=== PATIENT | male | born 1945 | race Caucasian/White ===

== ENCOUNTER 2019-06-22 02:11 | Emergency (ER) | payer MEDICARE ==
[2019-06-22] MEDS ORDERED: fentaNYL 100 MCG/2 ML SDV IVPUSH ONE (02:22)
[2019-06-22] MEDS: fentaNYL 100 MCG/2 ML SDV ONE ×2 (02:23→02:26)
[2019-06-22] MEDS ORDERED: Sodium Chloride 0.9% 10 ML Syringe FLUSH PRN ×3 (02:26→03:02)
[2019-06-22] MEDS ORDERED: Lactated Ringers 1,000 ML IV SCH (02:30)
--- NOTE | 2019-06-22 02:30 | EDM.PDOC ---
ED HPI GENERAL MEDICAL PROBLEM - General Stated Complaint: [facility] Time Seen by Provider: 06/22/19 02:25 Source of Information: Reports: Patient, EMS, RN Notes Reviewed History Limitations: Reports: No Limitations - History of Present Illness INITIAL COMMENTS - FREE TEXT/NARRATIVE: 73-year-old gentleman presents emergency department today complaint of sudden onset abdominal pain, he arrives by EMS services states the pain started early this evening awoke up from bed he did receive 4 mg Zofran in the ambulance. Does have nausea and vomiting no fevers Right Lower Abdomen Pain Score (Numeric/FACES): 10 - Related Data Allergies Allergy/AdvReac Type Severity Reaction Status Date / Time No Known Allergies Allergy Verified 06/22/19 02:20 Home Meds: Home Meds Insulin Glarg,Human.Rec.Analog [Lantus Solostar] 10 unit SQ BID 06/22/19 [ History] Insulin Regular, Human [Novolin R] 2 - 3 unit IJ TID PRN 06/22/19 [History] LORazepam [Ativan] 0.5 mg PO Q6H PRN 06/22/19 [History] Lisinopril 10 mg PO DAILY 06/22/19 [History] Omeprazole 20 mg PO DAILY 06/22/19 [History] Past Medical History Endocrine/Metabolic History: Reports: Diabetes, Type I Social & Family History - Tobacco Use Smoking Status *Q: Never Smoker ED ROS GENERAL - Review of Systems Review Of Systems: See Below Constitutional: Reports: No Symptoms Respiratory: Reports: No Symptoms Cardiovascular: Reports: No Symptoms GI/Abdominal: Reports: Abdominal Pain, Nausea, Vomiting ED EXAM, GI/ABD - Physical Exam Exam: See Below Exam Limited By: No Limitations General Appearance: Alert, Moderate Distress Respiratory/Chest: No Respiratory Distress, Lungs Clear, Normal Breath Sounds, No Accessory Muscle Use, Chest Non-Tender Cardiovascular: Regular Rate, Rhythm, No Murmur GI/Abdominal Exam: Normal Bowel Sounds, Soft, Tender Course - Vital Signs Last Recorded V/S: Last Vital Signs Temp 97.4 F 06/22/19 02:17 Pulse 72 06/22/19 02:17 Resp 22 H 06/22/19 02:17 BP 188/81 H 06/22/19 02:17 Pulse Ox 97 06/22/19 02:17 - Orders/Labs/Meds Orders: Active Orders 24 hr Category Date Time Status Bladder Scan [RC] ASDIRECTED Care 06/22/19 02:51 Active Peripheral IV Care [RC] . DIRECTED Care 06/22/19 02:26 Active Peripheral IV Care [RC] . DIRECTED Care 06/22/19 02:35 Active Iopamidol [Isovue-300 (61%)] Med 06/22/19 03:02 Active 99 ml IV . DIRECTED PRN Lactated Ringers [Ringers, Lactated] 1,000 ml Med 06/22/19 02:30 Active IV ASDIRECTED Sodium Chloride 0.9% [Normal Saline] 70 ml Med 06/22/19 03:15 Active IV ASDIRECTED Sodium Chloride 0.9% [Saline Flush] [facility] 06/22/19 02:26 Active 10 ml FLUSH ASDIRECTED PRN Sodium Chloride 0.9% [Saline Flush] [facility] 06/22/19 02:35 Active 10 ml FLUSH ASDIRECTED PRN Sodium Chloride 0.9% [Saline Flush] [facility] 06/22/19 03:02 Active 10 ml FLUSH ONETIME PRN Peripheral IV Insertion Adult [OM.PC] Urgent Oth 06/22/19 02:26 Ordered Peripheral IV Insertion Adult [OM.PC] Urgent Oth 06/22/19 02:35 Ordered Medication Orders Lactated Ringer's (Ringers, Lactated) 1,000 mls @ 500 mls/hr IV ASDIRECTED [facility] Last Admin: 06/22/19 02:35 Dose: 500 mls/hr Sodium Chloride (Normal Saline) 70 mls @ 3 mls/sec IV ASDIRECTED [facility] Last Admin: 06/22/19 03:21 Dose: 3 mls/sec Iopamidol (Isovue-300 (61%)) 99 ml IV . DIRECTED PRN PRN Reason: RADIOLOGY EXAM Stop: 06/23/19 03:03 Last Admin: 06/22/19 03:21 Dose: 99 ml Sodium Chloride (Saline Flush) 10 ml FLUSH ASDIRECTED PRN PRN Reason: Keep Vein Open Sodium Chloride (Saline Flush) 10 ml FLUSH ASDIRECTED PRN PRN Reason: Keep Vein Open Sodium Chloride (Saline Flush) 10 ml FLUSH ONETIME PRN PRN Reason: per radiology protocol Last Admin: 06/22/19 03:21 Dose: 10 ml Labs: Laboratory Tests 06/22/19 06/22/19 06/22/19 Range/Units 02:40 02:40 02:40 WBC 13.0 H (4.5-11.0) K/uL RBC 4.64 (4.30-5.90) M/uL Hgb 14.3 (12.0-15.0) g/dL Hct 42.2 (40.0-54.0) % MCV 91 (80-98) fL MCH 31 (27-31) pg MCHC 34 (32-36) % Plt Count 280 (150-400) K/uL Neut % (Auto) 84 H (36-66) % Lymph % (Auto) 9 L (24-44) % [place] % (Auto) 7 H (2-6) % Eos % (Auto) 0 L (2-4) % Baso % (Auto) 0 (0-1) % Sodium 135 L (140-148) mmol/L Potassium 3.3 L (3.6-5.2) mmol/L Chloride 98 L (100-108) mmol/L Carbon Dioxide 25 (21-32) mmol/L Anion Gap 15.3 H (5.0-14.0) mmol/L BUN 14 (7-18) mg/dL Creatinine 0.9 (0.8-1.3) mg/dL Est Cr Clr Drug Dosing 65.97 mL/min Estimated GFR (MDRD) > 60 (>60) Glucose 247 H (74-106) mg/dL Lactic Acid 3.8 H (0.4-2.0) mmol/L Calcium 8.8 (8.5-10.1) mg/dL Total Bilirubin 0.9 (0.2-1.0) mg/dL AST 94 H (15-37) U/L ALT 67 (12-78) U/L Alkaline Phosphatase 93 (46-116) U/L Troponin I < 0.017 (0.000-0.056) ng/mL Total Protein 6.8 (6.4-8.2) g/dL Albumin 3.6 (3.4-5.0) g/dL Globulin 3.2 (2.3-3.5) g/dL Albumin/Globulin Ratio 1.1 L (1.2-2.2) Lipase (73-393) U/L Urine Color (YELLOW) Urine Appearance (CLEAR) Urine pH (5.0-8.0) Ur Specific [place] (1.008-1.030) Urine Protein (NEGATIVE) mg/dL Urine Glucose (UA) (NEGATIVE) mg/dL Urine Ketones (NEGATIVE) mg/dL Urine Occult Blood (NEGATIVE) Urine Nitrite (NEGATIVE) Urine Bilirubin (NEGATIVE) Urine Urobilinogen (0.2-1.0) EU/dL Ur Leukocyte Esterase (NEGATIVE) Urine RBC (0-5) Urine WBC (0-5) Ur Epithelial Cells Amorphous Sediment Urine Bacteria Urine Mucus 06/22/19 06/22/19 Range/Units 02:47 04:07 WBC (4.5-11.0) K/uL RBC (4.30-5.90) M/uL Hgb (12.0-15.0) g/dL Hct (40.0-54.0) % MCV (80-98) fL MCH (27-31) pg MCHC (32-36) % Plt Count (150-400) K/uL Neut % (Auto) (36-66) % Lymph % (Auto) (24-44) % [place] % (Auto) (2-6) % Eos % (Auto) (2-4) % Baso % (Auto) (0-1) % Sodium (140-148) mmol/L Potassium (3.6-5.2) mmol/L Chloride (100-108) mmol/L Carbon Dioxide (21-32) mmol/L Anion Gap (5.0-14.0) mmol/L BUN (7-18) mg/dL Creatinine (0.8-1.3) mg/dL Est Cr Clr Drug Dosing mL/min Estimated GFR (MDRD) (>60) Glucose (74-106) mg/dL Lactic Acid (0.4-2.0) mmol/L Calcium (8.5-10.1) mg/dL Total Bilirubin (0.2-1.0) mg/dL AST (15-37) U/L ALT (12-78) U/L Alkaline Phosphatase (46-116) U/L Troponin I (0.000-0.056) ng/mL Total Protein (6.4-8.2) g/dL Albumin (3.4-5.0) g/dL Globulin (2.3-3.5) g/dL Albumin/Globulin Ratio (1.2-2.2) Lipase 7720 H (73-393) U/L Urine Color Yellow (YELLOW) Urine Appearance Cloudy A (CLEAR) Urine pH 8.5 H (5.0-8.0) Ur Specific [place] 1.020 (1.008-1.030) Urine Protein Negative (NEGATIVE) mg/dL Urine Glucose (UA) 100 H (NEGATIVE) mg/dL Urine Ketones Trace H (NEGATIVE) mg/dL Urine Occult Blood Moderate (NEGATIVE) Urine Nitrite Negative (NEGATIVE) Urine Bilirubin Negative (NEGATIVE) Urine Urobilinogen 0.2 (0.2-1.0) EU/dL Ur Leukocyte Esterase Small (NEGATIVE) Urine RBC 10-20 H (0-5) Urine WBC 0-5 (0-5) Ur Epithelial Cells Rare Amorphous Sediment Numerous Urine Bacteria Many Urine Mucus Not seen Meds: Medications Generic Name Dose Route Start Last Admin Trade Name Frebria PRN Reason Stop Dose Admin Lactated Ringer's 1,000 mls @ 500 mls/hr 06/22/19 02:30 06/22/19 02:35 Ringers, Lactated IV 500 mls/hr ASDIRECTED JIMBO Administration Sodium Chloride 70 mls @ 3 mls/sec 06/22/19 03:15 06/22/19 03:21 Normal Saline IV 3 mls/sec ASDIRECTED JIMBO Administration Iopamidol 99 ml 06/22/19 03:02 06/22/19 03:21 Isovue-300 (61%) IV 06/23/19 03:03 99 ml . DIRECTED PRN Administration RADIOLOGY EXAM Sodium Chloride 10 ml 06/22/19 02:26 Saline Flush FLUSH ASDIRECTED PRN Keep Vein Open Sodium Chloride 10 ml 06/22/19 02:35 Saline Flush FLUSH ASDIRECTED PRN Keep Vein Open Sodium Chloride 10 ml 06/22/19 03:02 06/22/19 03:21 Saline Flush FLUSH 10 ml ONETIME PRN Administration per radiology protocol Discontinued Medications Generic Name Dose Route Start Last Admin Trade Name Freq PRN Reason Stop Dose Admin Fentanyl Confirm 06/22/19 02:21 06/22/19 02:26 Sublimaze Administered 06/22/19 02:22 Not Given Dose 100 mcg .ROUTE .STK-MED ONE Fentanyl 100 mcg 06/22/19 02:22 06/22/19 02:25 Sublimaze IVPUSH 06/22/19 02:23 100 mcg ONETIME ONE Administration Ketorolac Tromethamine 30 mg 06/22/19 02:35 06/22/19 02:38 Toradol IVPUSH 06/22/19 02:36 30 mg ONETIME ONE Administration Lorazepam 1 mg 06/22/19 02:51 06/22/19 02:58 Ativan IVPUSH 06/22/19 02:52 1 mg ONETIME ONE Administration Departure - Departure Time of Disposition: 05:03 Disposition: Home, Self-Care 01 Condition: Poor Clinical Impression: Pancreatitis, acute Qualifiers: Pancreatitis type: other Acute pancreatitis complication: no infection or necrosis Qualified Code(s): K85.80 - Other acute pancreatitis without necrosis or infection - Discharge Information Referrals: PCP,None [Primary Care Provider] - Forms: ED Department Discharge Additional Instructions: Do not 80 anything by mouth other than clear liquids, use Percocet as needed for pain control, use Zofran as needed for nausea and vomiting symptoms, if this treatment does not work please return to the emergency department for further evaluation, Please followup with your primary care provider in 3-5 days if not better, please call return to the emergency department with worsening of symptoms. - My Orders Last 24 Hours: My Active Orders 06/22/19 02:26 Peripheral IV Care [RC] . DIRECTED Sodium Chloride 0.9% [Saline Flush] 10 ml FLUSH ASDIRECTED PRN Peripheral IV Insertion Adult [OM.PC] Urgent 06/22/19 02:30 Lactated Ringers [Ringers, Lactated] 1,000 ml IV ASDIRECTED 06/22/19 02:35 Peripheral IV Care [RC] . DIRECTED Sodium Chloride 0.9% [Saline Flush] 10 ml FLUSH ASDIRECTED PRN Peripheral IV Insertion Adult [OM.PC] Urgent 06/22/19 02:51 Bladder Scan [RC] ASDIRECTED 06/22/19 03:02 Iopamidol [Isovue-300 (61%)] 99 ml IV . DIRECTED PRN Sodium Chloride 0.9% [Saline Flush] 10 ml FLUSH ONETIME PRN 06/22/19 03:15 Sodium Chloride 0.9% [Normal Saline] 70 ml IV ASDIRECTED - Assessment/Plan Last 24 Hours: My Active Orders 06/22/19 02:26 Peripheral IV Care [RC] . DIRECTED Sodium Chloride 0.9% [Saline Flush] 10 ml FLUSH ASDIRECTED PRN Peripheral IV Insertion Adult [OM.PC] Urgent 06/22/19 02:30 Lactated Ringers [Ringers, Lactated] 1,000 ml IV ASDIRECTED 06/22/19 02:35 Peripheral IV Care [RC] . DIRECTED Sodium Chloride 0.9% [Saline Flush] 10 ml FLUSH ASDIRECTED PRN Peripheral IV Insertion Adult [OM.PC] Urgent 06/22/19 02:51 Bladder Scan [RC] ASDIRECTED 06/22/19 03:02 Iopamidol [Isovue-300 (61%)] 99 ml IV . DIRECTED PRN Sodium Chloride 0.9% [Saline Flush] 10 ml FLUSH ONETIME PRN 06/22/19 03:15 Sodium Chloride 0.9% [Normal Saline] 70 ml IV ASDIRECTED Plan: Assessment Acuity = acute Site and laterality = on chronic pancreatitis Etiology = unknown etiology Manifestations = abdominal pain, nausea and vomiting Location of injury = Home Lab values = WBC elevated 13.0 consistent leukocytosis, sodium low at 135 consistent hyponatremia potassium low at 3.5 consistent with hypokalemia, glucose elevated 247 consistent hyperglycemia, lactic acid elevated 3.8 consistent with lactic acidosis, troponin was negative lipase elevated 7720 consistent with pancreatitis urinalysis reveals 10-[address] scan describes acute on chronic pancreatitis with distended gallbladder and wall thickening Plan I did offer him hospital admission but he declined therefore will do Zofran ODT 1 tab by mouth 3 times a day when necessary total #10, Percocet 5/325 one tablet every 4-6 hours when necessary total #20 he'll follow up with his primary care in 3-5 days if not better or return to the emergency department if the outpatient treatment does not work This note was dictated using [employer] voice recognition software please call with any questions on syntax or grammar.
[2019-06-22] MEDS ORDERED: Ketorolac 30 MG/ML SDV IVPUSH ONE (02:35)
[2019-06-22] MEDS ORDERED: LORazepam 2 MG/ML SDV IVPUSH ONE (02:51)
[2019-06-22] MEDS ORDERED: Iopamidol 612 MG/ML 100 ML Bottle IV PRN (03:02)
--- NOTE | 2019-06-22 04:05 | CRLCT ---
INDICATION: Right lower quadrant pain TECHNIQUE: CT abdomen and pelvis acquired with 99 cc Isovue-300 intravenous contrast. COMPARISON: None. FINDINGS: Lower chest: Paraseptal bullae within the lung bases. Coronary atherosclerosis. Liver: Normal in contour with multiple calcifications consistent with old granulomatous disease. There are few scattered hypodense lesions within the liver the 2-3 millimeter range which are too small for characterization. Gallbladder and bile ducts: Distended gallbladder with some gallbladder wall thickening and a small amount of pericholecystic fluid. Pancreas: Multiple calcifications within the pancreas with edema and fat stranding along the pancreatic bed with a small amount of edema extending into the root of the mesentery. Fluid extends towards the bilateral pericolic gutters. Spleen: Unremarkable. Normal in size. No masses. Adrenal glands: Unremarkable. No nodules. Kidneys: Symmetric enhancement without hydronephrosis. Calcification at the medial margin of the right kidney which could represent a vascular calcification or nonobstructing stone. GI tract: The stomach is mildly distended with some wall thickening of the duodenum with inflammatory fat stranding in the right upper quadrant. Small to moderate amount of stool within the colon. Prominent colonic diverticulosis. Vasculature: Atherosclerosis without abdominal aortic aneurysm. Omentum/Peritoneum/Abdominal Wall: Small free fluid in the deep pelvis. Pelvis: Prostatic enlargement with prostatic calcification and a Faustin catheter within the bladder. Right inguinal surgical clips. Bones: Unremarkable for age. IMPRESSION: 1. Multiple pancreatic calcifications consistent with chronic pancreatitis with peripancreatic inflammation and fluid consistent with acute on chronic pancreatitis. No definite necrosis. Free fluid extends into the pericolic gutters and pelvis. 2. Gallbladder distention with some wall thickening without calcified gallstones. 3. Colonic diverticulosis. 4. Other incidental findings as detailed above. Please note that all CT scans at this facility use dose modulation, iterative reconstruction, and/or weight-based dosing when appropriate to reduce radiation dose to as low as reasonably achievable. Dictated by Jero Galvin MD @ Jun 22 2019 3:53AM Signed by Dr. Jero Galvin @ Jun 22 2019 4:02AM
== END 2019-06-22 05:44 | disposition home or self-care (01) ==
LOC: JP.ED 02:11
DX: K85.80 Other acute pancreatitis without necrosis or infection (principal); E10.9 Type 1 diabetes mellitus without complications; Z79.899 Other long term (current) drug therapy
CPT/HCPCS: 36415; 51798; 74177; 80053; 81001; 83605; 83690; 84484; 85025; 96360; 96361; 96374; 96375; 99283; 99284-25; J1885; J2060; J3010; J7030; J7120; Q9967